=== PATIENT | male | born 1950 | race Caucasian/White ===

== ENCOUNTER 2017-01-14 06:01 | Day surgery (SDC) | payer BC ==
[~2017-01-14 06:01] MED LIST: AMARYL4 PO; AVELOX400 PO; CHERATUSSIN OR; DETROLLA4 PO; DIOVAN320 MG PO; FLAXSEED OIL1000 MG PO; FLOMAX4 PO; GLUCOPHAGE1000 MG PO; HALF81 PO; HYDROCHLOROT25 MG PO; LISINOPRIL40 MG PO; LOP25 PO; LOP50 PO; LOPID6 PO; LORTAB 5 PO; NORCO1 TA2 PO; PROBIOTIC POWDER PO; TRULICITY1.5 MG/0.5 SQ; VIBRATAB100 MG PO; VITAMIN D31000 UNIT PO; Z100 PO; ZETIA PO
[2017-07-08] MEDS ORDERED: TRESIBA FL100 UNIT/1 (10:39)
[2017-07-08] MEDS ORDERED: STARLIX120 PO (10:40)
== END 2017-01-14 09:07 | disposition home or self-care (01) ==
LOC: SDC 06:01
PROVIDERS: Orthopaedic Surgery
PROC: 3E0R3BZ Introduction of Anesthetic Agent into Spinal Canal, Percutaneous Approach (ICD-10-PCS; 2017-01-14)
PROC: 3E0R33Z Introduction of Anti-inflammatory into Spinal Canal, Percutaneous Approach (ICD-10-PCS; principal; 2017-01-14 07:00)
DX: M54.17 Radiculopathy, lumbosacral region (principal); E78.00 Pure hypercholesterolemia, unspecified; E11.22 Type 2 diabetes mellitus with diabetic chronic kidney disease; G47.30 Sleep apnea, unspecified; Z88.1 Allergy status to other antibiotic agents; M10.9 Gout, unspecified; Z98.1 Arthrodesis status; D64.9 Anemia, unspecified; I12.9 Hypertensive chronic kidney disease with stage 1 through stage 4 chronic kidney disease, or unspecified chronic kidney disease; N18.9 Chronic kidney disease, unspecified; Z99.89 Dependence on other enabling machines and devices; Z90.49 Acquired absence of other specified parts of digestive tract; Z88.2 Allergy status to sulfonamides; N40.0 Benign prostatic hyperplasia without lower urinary tract symptoms; Z87.442 Personal history of urinary calculi; Z98.52 Vasectomy status; Z98.890 Other specified postprocedural states; Z79.82 Long term (current) use of aspirin; Z79.899 Other long term (current) drug therapy
CPT/HCPCS: 82962; J1040; J2250; J3010; Q9967

== ENCOUNTER 2017-01-29 05:58 | Day surgery (SDC) | payer BC ==
--- NOTE | ~2017-01-29 | EGD ---
EGD REPORT [facility] [address] [id number] NAME: ANNIE AGUIRRE : [birth year] STATUS : REG [facility] PAT#: [id number] AGE: 66 ADM/REG DATE : 01/29/17 MR#: [id number] REPORT SERV DATE: 01/29/17 DICTATED BY: KEHINDE MATTHEWS DATE: 01/29/17 REPORT STATUS : Draft TRANSCRIBED BY: [facility] DATE: 01/29/17 Endoscopy Center Patient Name: Annie Aguirre Date of : 1950 Attending MD: KEHINDE MATTHEWS MD Procedure Date No Time: 01/29/2017 Procedure: Colonoscopy Indications: Abdominal pain in the right lower quadrant, Abdominal pain in the right upper quadrant Referring MD: CHUCK JAIN Medicines: Propofol per Anesthesia Complications: No immediate complications. Procedure: Pre-Anesthesia Assessment: - ASA Grade Assessment: III - A patient with severe systemic disease. After I obtained informed consent, the scope was passed under direct vision. Throughout the procedure, the patient's blood pressure, pulse, and oxygen saturations were monitored continuously. The CF [id number] was introduced through the anus and advanced to the cecum, identified by appendiceal orifice and ileocecal valve. The ileocecal valve was photographed. The entire colon was examined. The colonoscopy was performed without difficulty. The patient tolerated the procedure well. The quality of the bowel preparation was good. Findings: A sessile polyp was found in the ascending colon. The polyp was 5 mm in size. The polyp was removed with a cold biopsy forceps. Resection and retrieval were complete. A sessile polyp was found in the transverse colon. The polyp was 5 mm in size. The polyp was removed with a cold biopsy forceps. Resection and retrieval were complete. Many medium-mouthed diverticula were found in the recto-sigmoid colon, in the sigmoid colon and in the descending colon. Internal hemorrhoids were found during retroflexion and were Grade I (internal hemorrhoids that do not prolapse). Impression: - One 5 mm polyp in the ascending colon. Resected and retrieved. - One 5 mm polyp in the transverse colon. Resected and retrieved. - Diverticulosis in the recto-sigmoid colon, in the sigmoid colon and in the descending colon. - Internal hemorrhoids. The rest of the colon was normal. EGD REPORT [address] [address] NAME: ANNIE AGUIRRE : [birth year] STATUS : REG [facility]#: [id number] AGE: 66 ADM/REG DATE : 01/29/17 MR#: [id number] REPORT SERV DATE: 01/29/17 DICTATED BY: KEHINDE MATTHEWS DATE: 01/29/17 REPORT STATUS : Draft TRANSCRIBED BY: [employer] DATE: 01/29/17 Recommendation: - Patient has a contact number available for emergencies. The signs and symptoms of potential delayed complications were discussed with the patient. Return to normal activities tomorrow. Written discharge instructions were provided to the patient. - Regular diet. - Patient has a contact number available for emergencies. The signs and symptoms of potential delayed complications were discussed with the patient. Return to normal activities tomorrow. Written discharge instructions were provided to the patient. - Continue present medications. Procedure Code(s): --- Professional --- 70164, Colonoscopy, flexible, proximal to splenic flexure; with biopsy, single or multiple Diagnosis Code(s): --- Professional --- D12.3, Benign neoplasm of transverse colon D12.2, Benign neoplasm of ascending colon K64.0, First degree hemorrhoids K57.30, Diverticulosis of large intestine without perforation or abscess without bleeding R10.31, Right lower quadrant pain R10.11, Right upper quadrant pain CPT copyright 2013 [employer]. All rights reserved. The codes documented in this report are preliminary and upon boat mechanic review may be revised to meet current compliance requirements. Kehinde Matthews MD KEHINDE MATTHEWS MD 01/29/2017 7:52 AM This report has been signed electronically. Number of Addenda: 0 Note Initiated On: 01/29/2017 7:17 AM Scope Withdrawal Time 0 hours 8 minutes 48 seconds [id number] [id number]
--- NOTE | ~2017-01-29 | EGD ---
EGD REPORT [facility] [address] [id number] NAME: ANNIE AGUIRRE : [birth year] STATUS : REG [facility] PAT#: [id number] AGE: 66 ADM/REG DATE : 01/29/17 MR#: [id number] REPORT SERV DATE: 01/29/17 DICTATED BY: KEHINDE MATTHEWS DATE: 01/29/17 REPORT STATUS : Draft TRANSCRIBED BY: [facility] DATE: 01/29/17 Endoscopy Center Patient Name: Annie Aguirre Date of : 1950 Attending MD: KEHINDE MATTHEWS MD Procedure Date No Time: 01/29/2017 Procedure: Colonoscopy Indications: Abdominal pain in the right lower quadrant, Abdominal pain in the right upper quadrant Referring MD: CHUCK JAIN Medicines: Propofol per Anesthesia Complications: No immediate complications. Procedure: Pre-Anesthesia Assessment: - ASA Grade Assessment: III - A patient with severe systemic disease. After I obtained informed consent, the scope was passed under direct vision. Throughout the procedure, the patient's blood pressure, pulse, and oxygen saturations were monitored continuously. The CF [id number] was introduced through the anus and advanced to the cecum, identified by appendiceal orifice and ileocecal valve. The ileocecal valve was photographed. The entire colon was examined. The colonoscopy was performed without difficulty. The patient tolerated the procedure well. The quality of the bowel preparation was good. Findings: A sessile polyp was found in the ascending colon. The polyp was 5 mm in size. The polyp was removed with a cold biopsy forceps. Resection and retrieval were complete. A sessile polyp was found in the transverse colon. The polyp was 5 mm in size. The polyp was removed with a cold biopsy forceps. Resection and retrieval were complete. Many medium-mouthed diverticula were found in the recto-sigmoid colon, in the sigmoid colon and in the descending colon. Internal hemorrhoids were found during retroflexion and were Grade I (internal hemorrhoids that do not prolapse). Impression: - One 5 mm polyp in the ascending colon. Resected and retrieved. - One 5 mm polyp in the transverse colon. Resected and retrieved. - Diverticulosis in the recto-sigmoid colon, in the sigmoid colon and in the descending colon. - Internal hemorrhoids. The rest of the colon was normal. EGD REPORT [address] [address] NAME: ANNIE AGUIRRE : [birth year] STATUS : REG [facility]#: [id number] AGE: 66 ADM/REG DATE : 01/29/17 MR#: [id number] REPORT SERV DATE: 01/29/17 DICTATED BY: KEHINDE MATTHEWS DATE: 01/29/17 REPORT STATUS : Draft TRANSCRIBED BY: [employer] DATE: 01/29/17 Recommendation: - Patient has a contact number available for emergencies. The signs and symptoms of potential delayed complications were discussed with the patient. Return to normal activities tomorrow. Written discharge instructions were provided to the patient. - Regular diet. - Patient has a contact number available for emergencies. The signs and symptoms of potential delayed complications were discussed with the patient. Return to normal activities tomorrow. Written discharge instructions were provided to the patient. - Continue present medications. Procedure Code(s): --- Professional --- 97486, Colonoscopy, flexible, proximal to splenic flexure; with biopsy, single or multiple Diagnosis Code(s): --- Professional --- D12.3, Benign neoplasm of transverse colon D12.2, Benign neoplasm of ascending colon K64.0, First degree hemorrhoids K57.30, Diverticulosis of large intestine without perforation or abscess without bleeding R10.31, Right lower quadrant pain R10.11, Right upper quadrant pain CPT copyright 2013 [employer]. All rights reserved. The codes documented in this report are preliminary and upon outpatient coder review may be revised to meet current compliance requirements. Kehinde Matthews MD KEHINDE MATTHEWS MD 01/29/2017 7:52 AM This report has been signed electronically. Number of Addenda: 0 Note Initiated On: 01/29/2017 7:17 AM Scope Withdrawal Time 0 hours 8 minutes 48 seconds [id number] [id number]
--- NOTE | ~2017-01-29 | EGD ---
EGD REPORT [facility] [address] [id number] NAME: ANNIE AGUIRRE : [birth year] STATUS : REG [facility] PAT#: [id number] AGE: 66 ADM/REG DATE : 01/29/17 MR#: [id number] REPORT SERV DATE: 01/29/17 DICTATED BY: KEHINDE MATTHEWS DATE: 01/29/17 REPORT STATUS : Draft [facility]ANSCRIBED BY: [facility] DATE: 01/29/17 Endoscopy Center Patient Name: Annie Aguirre Date of : 1950 Attending MD: KEHINDE MATTHEWS MD Procedure Date No Time: 01/29/2017 Procedure: Upper GI endoscopy Indications: Epigastric abdominal pain, Abdominal pain in the right upper quadrant Referring MD: CHUCK JAIN Medicines: Propofol per Anesthesia Complications: No immediate complications. Procedure: Pre-Anesthesia Assessment: - ASA Grade Assessment: III - A patient with severe systemic disease. After obtaining informed consent, the endoscope was passed under direct vision. Throughout the procedure, the patient's blood pressure, pulse, and oxygen saturations were monitored continuously. The GIF [id number] was introduced through the mouth, and advanced to the second part of duodenum. The upper GI endoscopy was accomplished without difficulty. The patient tolerated the procedure well. Findings: The examined esophagus was normal. Diffuse moderate inflammation characterized by erosions, erythema and friability was found in the stomach. Biopsies were taken with a cold forceps for histology. The examined duodenum was normal. Impression: - Normal esophagus. - Chronic gastritis. Biopsied. - Normal examined duodenum. Recommendation: - Discharge patient to home (ambulatory). Procedure Code(s): --- Professional --- 95167, Esophagogastroduodenoscopy, flexible, transoral; with biopsy, single or multiple Diagnosis Code(s): --- Professional --- K29.50, Unspecified chronic gastritis without bleeding R10.13, Epigastric pain R10.11, Right upper quadrant pain EGD REPORT [address] [place] [address] NAME: ANNIE AGUIRRE : [birth year] STATUS : REG [facility] PAT#: [id number] AGE: 66 ADM/REG DATE : 01/29/17 MR#: [id number] REPORT SERV DATE: 01/29/17 DICTATED BY: KEHINDE MATTHESW. DATE: 01/29/17 REPORT STATUS : Draft TRANSCRIBED BY: [employer] DATE: 01/29/17 CPT copyright 2013 [employer]. All rights reserved. The codes documented in this report are preliminary and upon algebraist review may be revised to meet current compliance requirements. Kehinde Matthews MD KEHINDE MATTHEWS MD 01/29/2017 7:55 AM This report has been signed electronically. Number of Addenda: 0 Note Initiated On: 01/29/2017 7:[address] [place], [place] [address] [address]
[2017-07-08] MEDS ORDERED: TRESIBA FL100 UNIT/1 (10:39)
[2017-07-08] MEDS ORDERED: STARLIX120 PO (10:40)
== END 2017-01-29 23:59 | disposition home or self-care (01) ==
LOC: DMU 05:58
PROVIDERS: Internal Medicine Gastroenterology
PROC: 0DBL8ZX Excision of Transverse Colon, Via Natural or Artificial Opening Endoscopic, Diagnostic (ICD-10-PCS; 2017-01-29)
PROC: 0DB68ZX Excision of Stomach, Via Natural or Artificial Opening Endoscopic, Diagnostic (ICD-10-PCS; principal; 2017-01-29 07:30)
PROC: 0DBK8ZX Excision of Ascending Colon, Via Natural or Artificial Opening Endoscopic, Diagnostic (ICD-10-PCS; 2017-01-29 07:30)
DX: D12.3 Benign neoplasm of transverse colon (principal); D12.2 Benign neoplasm of ascending colon; K64.0 First degree hemorrhoids; K57.30 Diverticulosis of large intestine without perforation or abscess without bleeding; K29.50 Unspecified chronic gastritis without bleeding; K21.9 Gastro-esophageal reflux disease without esophagitis; E78.5 Hyperlipidemia, unspecified; I11.0 Hypertensive heart disease with heart failure; I50.1 Left ventricular failure, unspecified; E11.9 Type 2 diabetes mellitus without complications; G47.33 Obstructive sleep apnea (adult) (pediatric); M19.90 Unspecified osteoarthritis, unspecified site; M10.9 Gout, unspecified; Z68.41 Body mass index [BMI] 40.0-44.9, adult; Z99.89 Dependence on other enabling machines and devices; Z86.010 Personal history of colon polyps; Z80.42 Family history of malignant neoplasm of prostate; Z82.49 Family history of ischemic heart disease and other diseases of the circulatory system; Z90.49 Acquired absence of other specified parts of digestive tract; Z98.890 Other specified postprocedural states; Z88.2 Allergy status to sulfonamides; Z88.8 Allergy status to other drugs, medicaments and biological substances; Z88.1 Allergy status to other antibiotic agents; Z79.899 Other long term (current) drug therapy
CPT/HCPCS: 82962; 88305

== ENCOUNTER 2017-07-09 11:38 | Observation (INO) | payer BC ==
[2017-07-08 08:42] LABS: HEMOGLOBIN 14.1 g/dL (13.6-17.8)
[2017-07-08 08:43] LABS: HEMATOCRIT 42.9 % (40.0-51.0)
[2017-07-08 08:56] LABS: CHLORIDE, SERUM 104 MMOL/L (96-112); CO2 (CARBON DIOXIDE) 27 MMOL/L (24-34); CREATININE 1.22 MG/DL (0.70-1.30); GFR AFRICAN AMERICAN 72 ML/MIN (>=60); GFR NON AFRICAN AMERICAN 62 ML/MIN (>=60); SODIUM, SERUM 139 MMOL/L (135-148)
[2017-07-08 08:57] LABS: BUN (BLOOD UREA NITROGEN) 27 MG/DL (6-23); GLUCOSE, SERUM 135 MG/DL (60-99); POTASSIUM, SERUM 4.8 MMOL/L (3.5-5.3)
[~2017-07-09] VITALS: Ht 176.5 cm; Wt 138.6 kg
--- NOTE | ~2017-07-09 | OP ---
Record Of Operation [facility] [address] [place]. [address] NAME: ANNIE AGUIRRE : [birth year] STATUS : ADM IN PAT#: [id number] AGE: 66 ADM/REG DATE : 07/09/17 MR#: [id number] REPORT SERV DATE: 07/10/17 DICTATED BY: SANAZ ABAD II DATE: 07/10/17 REPORT STATUS : Draft TRANSCRIBED BY: [employer] DATE: 07/10/17 DATE OF PROCEDURE: 07/09/2017 PREOPERATIVE DIAGNOSES: 1. 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 2. Left greater than right lower extremity radiculopathy. POSTOPERATIVE DIAGNOSES: 1. 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 2. Left greater than right lower extremity radiculopathy. 3. Calcified herniated nucleus pulposus. 4. L5 and S1 nerve root impingement. PROCEDURES: 1. Lumbar laminectomy for decompression of the L5 and S1 nerve roots. 2. Use of the microscope and stereotactic spinal imaging. FLUIDS: 1100 mL LR. ESTIMATED BLOOD LOSS: 30 mL. DRAINS: One drain. COMPLICATIONS: None. ANTIBIOTIC: Preoperatively. PREOPERATIVE HISTORY: This is a very friendly 66-year-old gentleman, who works with the [employer] in the [place], [place] area. He is very well-known to me. He has been a very pleasant and compliant patient through the years. He has a history of L4-5 fusion. This was complicated by a superficial infection, but ultimately he did very well. I have been seeing him more in the last six months secondary to radiculopathy. He appears to have significant stenosis at L5-S1. Overall from a surgical perspective, I did not believe that fusion would be necessary. Also, from a surgical perspective and a technical perspective, any surgery fusion or not would be rather complex, given his size. He has a body mass index of approximately 50. He had failed conservative care and overall wished to have surgery. Again, I felt that a nonfusion approach would be the best way to approach this. Overall, the complexity of this case was rather high and the difficulty was also extremely high because of his body mass index of approximately 50. 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 Overall, we had discussed the risks of the surgery which of course included infection, which he has previously had. We discussed the risk of spinal fluid leaks and instability and potentially the need for future surgery. We also discussed medical complications such as Record Of Operation [place] [address] [facility] [place] [address] NAME: ANNIE AGUIRRE : 52 STATUS : ADM IN PAT#: [id number] AGE: 66 ADM/REG DATE : 07/09/17 MR#: [id number] REPORT SERV DATE: 07/10/17 DICTATED BY: SANAZ ABAD II DATE: 07/10/17 REPORT STATUS : Draft TRANSCRIBED BY: [employer] DATE: 07/10/17 heart attack and stroke. DESCRIPTION OF PROCEDURE: After informed consent was obtained, the patient was brought to the operating room at his request and general anesthesia was achieved. He was placed in the prone position. The back was prepped and draped in a sterile fashion. Again as mentioned above, this case was extremely difficult because of the several factors. One factor was his body mass index of approximately 50. Also, this overall took a significant amount of time for positioning alone. The case itself was also difficult because we had to use deeper instruments. We had to use the custom length longer quadrant blades. 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 This overall took much more time to approach the canal as we had to remove heterotopic bone prior to even getting to the [place] bone at L5-S1. At this point, the quadrant retractor had now been placed and the medial to lateral blades were placed. Also please note, we had performed the intraoperative CT scan following placement of the stereotactic pin. Stereotactic guidance was used throughout the case. At this point, with the microscope in place, the heterotopic bone was again removed and [place] lamina was noted. The high-speed cale was now used to remove the lamina. The curved curettes and the Kerrison rongeurs were also used for decompression. The hypertrophic ligamentum flavum was now removed. The dura was then well-decompressed and the S1 nerve roots were aggressively decompress with removal of a portion of the facets bilaterally. At this point, we evaluated the L5 nerve roots simply given the severity of the facet arthrosis and the hypertrophy. We were able to confirmed the compression of the L5 nerve roots in the foraminal zone which necessitated additional removal of superior facet which I did not preoperatively anticipate. This took an additional amount of time, but ultimately we were able to confirmed the decompression of the L5 nerve roots. At this point, the L5 and S1 nerve roots were confirmed to be well-decompressed. The irrigation was performed and hemostasis was achieved with the use of Gelfoam. A deep drain was placed; however, secondary to cancellous bone bleeding and the fact that we were going to keep him overnight given some of his medical issues. After standard closure was performed, the patient was then extubated and transferred to the PACU in stable condition. JAY/REBECCA Sanaz Abad II, M.D. / [id number] Record Of Operation [address] [address] NAME: ANNIE AGUIRRE : [birth year] STATUS : ADM IN PAT#: [id number] AGE: 66 ADM/REG DATE : 07/09/17 MR#: [id number] REPORT SERV DATE: 07/10/17 DICTATED BY: SANAZ ABAD II DATE: 07/10/17 REPORT STATUS : Draft TRANSCRIBED BY: REBECCA DATE: 07/10/17 CC: Francisco Townsend II, D.O.
[~2017-07-09 11:38] MED LIST changes: +STARLIX120 PO; +TRESIBA FL100 UNIT/1
[2017-07-10] MEDS ORDERED: V2 PO (11:40)
[2017-07-10] MEDS ORDERED: PERCOCET 10/3251 TAB PO (11:40)
== END 2017-07-10 13:02 | disposition home or self-care (01) ==
LOC: ENRESERVDT → ENRESERV → ENRESERVTM → SDC 11:38 → 3SO 19:21
PROVIDERS: Orthopaedic Surgery
PROC: 00NY0ZZ Release Lumbar Spinal Cord, Open Approach (ICD-10-PCS; principal; 2017-07-09 13:30)
DX: M51.17 Intervertebral disc disorders with radiculopathy, lumbosacral region (principal); M48.07 Spinal stenosis, lumbosacral region; M10.9 Gout, unspecified; I10 Essential (primary) hypertension; G47.33 Obstructive sleep apnea (adult) (pediatric); E11.9 Type 2 diabetes mellitus without complications; Z99.81 Dependence on supplemental oxygen; Z68.41 Body mass index [BMI] 40.0-44.9, adult; Z88.1 Allergy status to other antibiotic agents; Z98.52 Vasectomy status; Z88.2 Allergy status to sulfonamides
CPT/HCPCS: 80048; 82962; 85014; 85018; 88304; 88311; 93005; 96374; 96375; 96376; 97161-GP; A9270-GY; G0378; J0690; J1170; J2250; J2370; J2405; J2710; J3010